=== PATIENT | male | born 1985 | race Caucasian/White ===

== ENCOUNTER 2016-05-11 10:19 | Emergency (ER) | payer OTHER ==
[~2016-05-11] VITALS: Ht 190.5 cm; Wt 106.4 kg
[~2016-05-11 10:19] MED LIST: ESCI1TAB10 PO; LORA-741 PO; OXYC1TAB3 PO
[2016-05-11 10:44] VITALS: Ht 190.5 cm; Wt 106.4 kg
[2016-05-11] MEDS ORDERED: AMOX875T PO (11:09)
[2016-05-11] MEDS ORDERED: ULT/50 PO (11:09)
--- NOTE | 2016-05-11 11:15 | EMERGENCY ROOM VISIT NOTE ---
History First contact with patient: 10:53 (William Logan PA-C) First contact with patient: 10:53 (Natacha Payton DO) Chief Complaint: DENTAL PAIN Stated Complaint: GUM INFECTION, CHILLS, SWOLLEN NODES Nursing Triage Summary: to dentist fri morning for gum infection , cleaned teeth no abx given pain in gums remain (William Logan PA-C) History of Present Illness The patient is a 30 year old male who presents to the Emergency Room with complaints of mouth pain, chills, and sore throat symptoms for the past 6 or 7 days. The patient went to a dentist 3 days ago for evaluation of his symptoms, and a dental cleaning was performed. He was not started on any medication at that time. The patient states that he has persistent discomfort that is making it uncomfortable for him to eat and drink. He has not had distinct fever or drainage from his mouth. No injury that he recalls. He rates his discomfort an 8/10. (William Logan PA-C) Review of Systems More than 10 systems were reviewed and otherwise negative with the exception of history of present illness. (William Logan PA-C) Past Medical/Surgical History Medical Problems: (1) Asthma, Unspecified (2) Early Syphil Latent Nos (3) History Of Tobacco Use Surgical Problems: (1) History of arthroscopy of left knee (Natacha Payton DO) Family History FH: cancer FH: kidney disease (William Logan PA-C) FH: cancer FH: kidney disease (Natacha Payton DO) Social History Smoking Status: Former Smoker Alcohol Use: occasionally Marital Status: single Housing Status: lives alone Occupation Status: employed (William Logan PA-C) Current/Historical Medications Scheduled Amoxicillin & Pot Clavulanate (Augmentin 875-125 mg), 1 TAB PO BID Escitalopram Oxalate (Lexapro), 20 MG PO QPM Tramadol Hcl (Ultram), 50 MG PO Q8H Scheduled PRN Lorazepam (Ativan), 0.5 MG PO BID PRN for Anxiety Allergies Coded Allergies: No Known Allergies (Unverified , 05/11/16) Physical Exam Vital Signs Date Time Temp Pulse Resp B/P Pulse Ox O2 Delivery O2 Flow Rate FiO2 05/11/16 11:22 37.6 92 18 148/90 99 05/11/16 11:21 92 18 148/90 99 Room Air 05/11/16 10:44 37.6 100 18 169/97 99 Room Air (Natacha Payton, DO) Physical Exam VITALS: Vitals are noted on the nurse's note and reviewed by myself. Vital signs stable. GENERAL: Well-developed, well-nourished, white male, who is in no acute distress and resting comfortably. Patient is cooperative with the examination. HEAD: Normocephalic atraumatic. EARS: External ear normal. External auditory canals clear, tympanic membranes pearly henry without erythema or effusion bilaterally. EYES: Pupils equal round and reactive to light and accommodation. Conjunctivae without injection, sclerae without icterus. Extraocular movements intact. NOSE: Patent, turbinates without inflammation or discharge. MOUTH: Mucous membranes moist. Tonsils are not enlarged. Pharynx without erythema, blood, or exudate. Uvula midline. Airway patent. Dentition overall good repair. The inferior and anterior gumline is quite erythematous without obvious lesions. This area is tender. No abscess. No Yury's. NECK: Supple without nuchal rigidity. No lymphadenopathy. No thyromegaly. Cervical spine is nontender. HEART: Regular rate and rhythm without murmurs gallops or rubs. LUNGS: Clear to auscultation bilaterally without wheezes, rales or rhonchi. No retractions or accessory muscle use. (William Logan PA-C) Medical Decision & Procedures ED Course Physical exam and history were performed. Nursing notes and EMR were reviewed. Patient appears to have mouth pain throughout his anterior gumline of his jaw. There are no obvious lesions to suspect a herpetic gingivostomatitis. The patient's symptoms have been ongoing for at least 6 days, and regardless he would be outside of a window for acyclovir. He does have an appointment upcoming with his dentist in 3 days, and was asked to keep this appointment. He will be given a course of Augmentin as well as tramadol. The patient was otherwise invited back to the emergency department with any new, worsening, or concerning symptoms. The chart was completed utilizing [employer] Speech Voice Recognition Software. Grammatical errors, random word insertions, pronoun errors, and incomplete sentences are an occasional consequence of this system due to software limitations, ambient noise, and hardware issues. Any formal questions or concerns about the content, text, or information contained within the body of this dictation should be directly addressed to the provider for clarification. . (William Logan PA-C) Medical Decision Differential diagnosis includes, but is not limited to: Dental pain, viral infection, dental infection, mouth pain, STD, and others (William Logan PA-C) Impression Primary Impression: Oral pain Departure Information Dispostion Home / Self-Care Condition GOOD Prescriptions Tramadol Hcl (ULTRAM) 50 Mg Tab 50 MG PO Q8H for 3 Days, #9 TAB Prov: William Logan PA-C 05/11/16 Amoxicillin & Pot Clavulanate (Augmentin 875-125 mg) 1 Tab Tab 1 TAB PO BID for 10 Days, #20 TAB Prov: William Logan PA-C 05/11/16 Referrals No Doctor, Assigned Forms HOME CARE DOCUMENTATION FORM, IMPORTANT VISIT INFORMATION Patient Instructions My [facility] Additional Instructions You were seen and evaluated today on an emergency basis only. This is not a substitute for, or an effort to provide, complete comprehensive medical care. It is not possible to recognize and treat all injuries or illnesses in a single emergency department visit. For this reason it is recommended that you followup with your dentist as scheduled this week for ongoing care and evaluation. For baseline pain relief you may alternate ibuprofen and acetaminophen every 4 hours for pain control. Take 600 mg ibuprofen (Advil) and then 4 hours later take 1000 mg acetaminophen (Tylenol). Do not take more than 3000 mg acetaminophen in a single day. Take tramadol 50 mg every 8 hours as needed for breakthrough pain. Do not drink or drive while on tramadol. Amoxicillin Clavulanate (Augmentin) 875mg: Take one pill twice daily for 10 days for your infection. All antibiotics can cause diarrhea. If this occurs and you feel worse or it does not resolve in 1-2 days follow up with your doctor or return to the Emergency Department as this could be signs of serious underlying problems. Any medication can cause an allergic reaction, stop the pills immediately and return to the ER for rash, hives, breathing difficulties, or swelling. You are welcome to return to the emergency department anytime with new, worsening, or concerning symptoms.
[2016-05-11 11:22] VITALS: BP 148/90; PULSE 92; TEMP 37.6; O2SAT 99
== END 2016-05-11 11:23 | disposition home or self-care (01) ==
LOC: C.EDB 10:21 → C.EDD 11:23
DX: K08.89 Other specified disorders of teeth and supporting structures (principal); J45.909 Unspecified asthma, uncomplicated; Z87.891 Personal history of nicotine dependence

== ENCOUNTER 2017-05-10 10:44 | Emergency (ER) | payer OTHER ==
[~2017-05-10] VITALS: Ht 190.5 cm; Wt 130.9 kg
[~2017-05-10 10:44] MED LIST changes: -OXYC1TAB3 PO
[2017-05-10 10:47] VITALS: Ht 190.5 cm; Wt 130.9 kg
[2017-05-10] MEDS ORDERED: PROPARACAINE HCL 0.5% OP SOLN 15 ML BTL OP STA (11:02)
[2017-05-10] MEDS ORDERED: ALPR-385 PO (11:07)
[2017-05-10] MEDS ORDERED: BUSP15TA70 PO (11:07)
[2017-05-10] MEDS ORDERED: AMLO-110 PO (11:07)
[2017-05-10] MEDS ORDERED: FLUO20CA35 PO (11:07)
[2017-05-10] MEDS ORDERED: HYDR-5688 PO (11:36)
[2017-05-10] MEDS ORDERED: CIPR0.3S OP (11:36)
[2017-05-10 11:47] VITALS: BP 151/88; PULSE 81; TEMP 37; O2SAT 98
--- NOTE | 2017-05-11 10:12 | EMERGENCY ROOM VISIT NOTE ---
ED Visit Note First contact with patient: 10:58 Chief Complaint: Right eye pain. History of Present Illness: Mr. Mcmullen is a 31-year-old male who ambulates into the ED accompanied by male friend complaining of right eye pain. Patient reports this week he received a new set of contacts. A contact solution was recommended to the patient. He reports he cleansed the contact with the recommended solution, which contains hydrogen peroxide, but did not read the full instructions. Full instructions recommended using a specialized contact case. He then reports he put the contact in and it fell out so he flushed the contact with the contact solution and then put it in. He reports almost immediately he started having a burning sensation. Since that time the pain has been constant and gradually increasing in intensity. Currently he is complaining of right eye pain. He describes this as a throbbing and bruise-like sensation. He rates his discomfort 6/10. The pain is nonradiating. He has not identified any aggravating or alleviating factors related to the pain. He has not taken any medication for pain prior to arrival at the hospital. Associated with his pain he reports she has noted some swelling of the external orbit, a global headache, blurry vision, light sensitivity and tearing. He denies fevers, recent eye/orbital/face trauma, decrease in vision, floaters, flashing lights, drawing curtains. Review of Systems: As noted above in history of present illness. Past Medical History: Status post left knee surgery. Current Medications: Norvasc, Prozac, BuSpar, Xanax. Allergies to Medications: Patient denies. Social History: Patient is currently employed; he feels safe in his home environment; he denies tobacco use and admits to alcohol use. Tetanus Immunization Status: Up-to-date. Physical Examination: Vital Signs: Date Time Temp Pulse Resp B/P (MAP) Pulse Ox O2 Delivery O2 Flow Rate FiO2 05/10/17 10:47 37.0 85 18 168/97 98 Room Air GENERAL: 31-year-old male in moderate distress due to pain, nontoxic-appearing, afebrile and hemodynamically stable. NEUROLOGICAL: Awake, alert and oriented to person, place and time. Answering questions appropriately and following commands. Normal gait. Good hand eye coordination. SKIN: Warm, dry and pink. No soft tissue eruptions or trauma noted. HEENT: Atraumatic and normocephalic. PERRLA. EOMI. Positive light sensitivity. Sclera moderately injected and conjunctiva pink with drainage of clear tears. Visual acuity: Right 20/200, left 20/70 without any correction. No foreign bodies noted under the eyelids are embedded in the cornea. The anterior chamber is clear. On staining and slit light examination patient has an uptake of the dye and punctate-like fashion across the sclera. No corneal marcano or ulcers were noted. There is mild swelling around the orbits that is not erythematous or tender to palpation. ED Course: Patient is assessed as noted above. Patient's medication list was reviewed. Alcaine was used to anesthetize the eye for examination. Patient's case was consulted with Dr. 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 Patient was educated about today's findings and instructed on his treatment plan ; he verbalized understanding and agreement with this plan. Clinical Impression: Right superficial punctate keratitis. Decision-Making: Initially my differential diagnosis I considered superficial punctate keratitis, corneal abrasion, corneal ulcer, corneal burn, conjunctivitis. And other causes Disposition: Patient discharged home in stable condition accompanied by male friend; prior to departure he was reassessed and subjectively reported he was feeling better and rated his discomfort 3/10. Plan: Patient was encouraged to use Ciloxan ophthalmic solution 2 drops 4 times a day for 5 days; he was encouraged to use the over the counter saline drops between doses of his Ciloxan. Patient was placed on a sliding pain medication scale of ibuprofen, acetaminophen and [place]; his name was checked on state database and no red flags were noted and he was given appropriate narcotic precautions. Patient was encouraged to use cool compresses on his outer eye as needed. Patient was encouraged to contact his ground transportation operator for recheck in 36-48 hours ; patient reports he does have a follow-up appointment on Friday. Patient is encouraged to return the ED for worsening pain, worsening swelling, worsening vision changes, fevers, vomiting, headaches or any new/concerning symptoms.
== END 2017-05-10 11:47 | disposition home or self-care (01) ==
LOC: C.EDB 10:45 → C.EDD 11:47
DX: H16.101 Unspecified superficial keratitis, right eye (principal)